=== PATIENT | male | born 1990 | race Caucasian/White ===

== ENCOUNTER 2017-08-29 08:00 | Outpatient (CLI) | payer OTHER ==
[2017-08-29 18:46] LABS: BASOPHILS % (AUTO) 0.5 %; EOSINOPHILS # (AUTO) 0.2 10^3/uL (0.0-0.7); EOSINOPHILS % (AUTO) 3.6 %; HGB - HEMOGLOBIN 13.9 g/dL (14.0-18.0); LYMPHOCYTES # (AUTO) 1.9 10^3/uL (1.5-3.5); LYMPHOCYTES % (AUTO) 31.6 %; MEAN CORPUSCULAR HEMOGLOBIN 30.5 pg (27.0-31.0); MEAN CORPUSCULAR HGB CONC 34.3 g/dL (32.0-36.0); MEAN CORPUSCULAR VOLUME 88.8 fL (80.0-94.0); MEAN PLATELET VOLUME 7.9 fL (7.4-11.4); MONOCYTES # (AUTO) 0.5 10^3/uL (0.0-1.0); MONOCYTES % (AUTO) 8.4 %; NEUTROPHILS # (AUTO) 3.3 10^3/uL (1.5-6.6); NEUTROPHILS % (AUTO) 55.9 %; PLT - PLATELET COUNT 204 10^3/uL (130-450); RED BLOOD COUNT 4.57 10^6/uL (4.70-6.10); RED CELL DISTRIBUTION WIDTH 12.7 % (12.0-15.0); WHITE BLOOD COUNT 5.9 x10^3/uL (4.8-10.8)
[2017-08-29 19:33] LABS: ALBUMIN 4.8 g/dL (3.2-5.5); ALBUMIN/GLOBULIN RATIO 1.7 (1.0-2.2); ALKALINE PHOSPHATASE 73 IU/L (42-121); ALT ALANINE AMINOTRANSFERASE 22 IU/L (10-60); AST ASPARTATE AMINOTRANSFERASE 21 IU/L (10-42); BILIRUBIN,TOTAL 0.8 mg/dL (0.2-1.0); BUN - BLOOD UREA NITROGEN 16 mg/dL (6-20); CALCIUM 10.3 mg/dL (8.5-10.3); CARBON DIOXIDE - CO2 28 mmol/L (21-32); CHLORIDE 95 mmol/L (101-111); CHOL/HDL RATIO 5.3 (<5.0); CHOLESTEROL 211 mg/dL; GFR - MDRD 91 (>89); GLUCOSE 89 mg/dL (70-100); HDL CHOLESTEROL 40 mg/dL; LDL CHOLESTEROL,CALCULATED 124 mg/dL; LDL/HDL RATIO 3.1 (<3.6); SODIUM 141 mmol/L (135-145); TOTAL PROTEIN 7.6 g/dL (6.7-8.2); VLDL CHOLESTEROL 47 mg/dL
== END 2017-08-29 08:01 | disposition home or self-care (01) ==
LOC: LAB.WCP 08:00
PROVIDERS: ATTEND Family Medicine
DX: E03.9 Hypothyroidism, unspecified (principal)
CPT/HCPCS: 36415; 80053; 80061; 83721; 84443; 85025

== ENCOUNTER 2022-07-28 07:54 | Outpatient (CLI) | payer OTHER ==
--- NOTE | 2022-07-28 10:09 | Ultrasound Report ---
PROCEDURE: Head or Neck Soft Tissue INDICATIONS: ENLARGED THYROID TECHNIQUE: Real time scanning was performed of the neck region of interest, with image documentation . COMPARISON: None FINDINGS: Right thyroid measures 5.8 x 1.5 x 2 cm. Left thyroid measures 4.7 x 1.4 x 1.7 cm. Isthmus measures 0.4 cm. No actionable thyroid nodule identified. Nodules under 5 mm may represent colloid cysts. IMPRESSION: No actionable thyroid nodule identified. Reviewed by: Deandre Campbell MD on 07/28/2022 10:08 AM [facility] Approved by: Deandre Campbell MD on 07/28/2022 10:08 AM [facility] Station ID: [id number]
== END 2022-07-28 07:55 | disposition home or self-care (01) ==
LOC: DI 07:54
PROVIDERS: ATTEND Physician Assistant
DX: E04.9 Nontoxic goiter, unspecified (principal)

== ENCOUNTER 2022-09-30 11:06 | Outpatient (CLI) | payer OTHER ==
--- NOTE | 2022-09-30 11:59 | SLEEP CARE CONSULTATION ---
Information from patient questionnaire entered by Lillie Elam. I have reviewed and concur with the information entered by Lillie Elam. This document represents the service I personally performed and the decisions made by me, Melanie Holbrook ARNP. History of Present Illness Service Date and Time: 09/30/2022 1106 Reason for Visit: New patient Chief Complaint: reports: Unrefreshed sleep, Snoring, Fatigue Date of Onset: fatigue 10+yrs, snoring 5yrs Usual bedtime: 10-11pm Time it takes to fall asleep: 30mins Snores at night: Yes Observed to quit breathing while asleep: No Sleeps alone due to snoring: No Number of times waking at night: 5-6 Reasons for waking at night: reports: Snoring, Bathroom, Other (dog). denies: Choking, Gasping for air Toss, Turn, or Twitch while sleeping: Yes Recalls having dreams: Yes Usually gets out of bed at: 0830-930am Feels refreshed in the morning: No Morning headache: Yes (3 times a month; last good portion of day, usually takes meds) Sleepy or fatigued during the day: Yes Ever fallen asleep while driving: No Takes day naps: Yes (unintentional naps, usually about 30 mins) Dreams during day naps: No Prior sleep studies: No Additional HPI information: I had the pleasure of seeing MUSLIM SANTY today regarding the possibility of him having a sleep disorder. His current complaints are fatigue, snoring and unrefreshed sleep. He states he has been snoring. He often feels tired throughout the day. He does not always wake up feeling rested. He had felt fatigued all the time for over 10 years but only noted snoring in last 5 years. He has woke himself up snoring. He denies pauses in breathing when sleeping. 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 Patient is Single and lives in [place]. Have you smoked in the past 12 months: No Alcohol use: Yes Alcohol amount and frequency: 1 drink 1-2 times a month Caffeine use: Yes Caffeine amount and frequency: max green tea 4-6 cups a day Family History Family history of sleep disordered breathing: Yes Family Hx Sleep Apnea: Mother: Snoring, Father: Snoring, Grandparent: Snoring Allergies and Home Medications Known drug allergies: No Drug allergies reviewed: Yes Home medication list reviewed: Yes Allergy and home medication list: Medications: Bupropion Venlafaxine Review of Systems Weight gain over past 5 years: 20 Cardiovascular: denies: high blood pressure Respiratory: denies: shortness of breath Gastrointestinal: denies: heartburn Neurological: reports: headaches Psychiatric: reports: Attention Deficit Hyperactivity, anxiety, depression Ear/Nose/Throat: reports: wisdom teeth removed. denies: tonsillectomy Immunologic: denies: allergies to food or environment Physical Exam Vital signs obtained and entered by: LILLIE Hale MA Blood Pressure: 132/90 (left arm) Cuff size: regular Heart Rate: 98 O2 Saturation: 97 Height: 5 ft 10 in Weight: 192 lb 6.4 oz Body Mass Index: 27.6 BMI Classification: Overweight Neck circumference: 16.25 Mouth and throat: narrow oropharynx Soft palate: long Hard palate: normal Uvula: normal Uvula visualization: 25% Mallampati Class III Tongue: normal in size Tonsils: small Neck: normal w/o lymphadenopathy or thyromegaly Heart: regular rate and rhythm Lungs: clear bilaterally Impression and Plan 1. Suspected Obstructive Sleep Apnea-Hypopnea Syndrome, as suggested by a history of irregular snoring, morning headache, frequent awakening during the night, unrefreshed sleep, cognitive impairment, and excessive daytime sleepiness. Narrow oropharynx and obesity are common predisposing factors for obstructive sleep apnea-hypopnea syndrome. I recommend proceeding to polysomnography to confirm the diagnosis and to assess severity. If the patient has significant sleep disordered breathing, a manual CPAP titration study will also be performed to find the optimal treatment pressure. I informed the patient of what the sleep studies involve and after some discussion, obtained agreement to proceed. The pathophysiology of obstructive sleep apnea-hypopnea syndrome was discussed with the patient and health risks of cardiovascular and cerebr ovascular disease if not treated. Risks of drowsy driving discussed in detail and patient advised to avoid long distance driving and to caul puller at the first sign of drowsiness. Patient agreed to plan. * Schedule polysomnography * Avoid long distance driving or driving when feeling sleepy. * Avoid alcohol, sedative and muscle relaxant around bedtime. * Attempt to lose weight. * Review instructions provided by trained office staff on how to prepare for the sleep study. * Return for follow-up after sleep study completed. Counseling Topics: Weight loss health impact Visit Type: In Office Time Spent with Patient (minutes): 32 Provider Statement: I spent 100% of the Face to Face Visit with the patient with greater than 50% spent counseling the patient and coordination of care.
[2022-09-30 12:00] VITALS: BP 132/90
== END 2022-09-30 11:07 | disposition home or self-care (01) ==
LOC: SC 11:06
PROVIDERS: ATTEND Nurse Practitioner Family
DX: G47.10 Hypersomnia, unspecified (principal); R06.83 Snoring; R51.9 Headache, unspecified; G47.8 Other sleep disorders; R53.83 Other fatigue; R41.89 Other symptoms and signs involving cognitive functions and awareness; E66.3 Overweight; Z68.27 Body mass index [BMI] 27.0-27.9, adult
CPT/HCPCS: 99203; 99212

== ENCOUNTER 2022-11-09 09:28 | Outpatient (CLI) | payer OTHER | END 2022-11-09 09:29 | disposition home or self-care (01) | LOC: SC 09:28 | PROVIDERS: ATTEND Nurse Practitioner Family | DX: G47.33 Obstructive sleep apnea (adult) (pediatric) (principal); R09.02 Hypoxemia; E66.3 Overweight; Z68.27 Body mass index [BMI] 27.0-27.9, adult | CPT/HCPCS: 95806 ==

== ENCOUNTER 2022-11-30 08:45 | Outpatient (CLI) | payer OTHER ==
[2022-11-30 09:07] VITALS: BP 136/83
--- NOTE | 2022-11-30 09:07 | SLEEP CARE CONSULTATION ---
Information from patient questionnaire entered by Milka Elam. I have reviewed and concur with the information entered by Milka Elam. This document represents the service I personally performed and the decisions made by , Melanie Holbrook ARNP. History of Present Illness Service Date and Time: 11/30/2022 0845 Initial Newton Sleepiness Scale score: 13 (09/30/22) Current Newton Sleepiness Scale score: 11 Additional HPI information: DAYTON MADERA returns for follow up and results of the recently performed home sleep study. I explained the pathophysiology behind obstructive sleep apnea. We then spent quite a bit of time discussing different treatment options. For mild obstructive sleep apnea, surgery and oral appliance are alternatives to nasal CPAP therapy but in moderate or severe cases, nasal CPAP is the most effective and reliable treatment. Because apnea is primarily in supine position, then positional management therapy could be effective. Methods discussed such as positioning with pillows, using a T-shirt with tennis balls in the back or products that have a pillow format on back to prevent supine sleep. I reviewed the impact of weight changes on sleep apnea and strongly recommended losing weight. Patient counseled not drink alcohol less than 4 hours before bedtime as it can increase snoring and apnea. Patient was cautioned about risks of drowsy driving until sleepiness symptoms resolve. Patient denies drowsy driving. Sleep Study - Results Type of Sleep Study: Home sleep study (COMPLETED 11/09/22) Prior sleep studies: No Polysomnography/Home Sleep Study results: Physician Impression: The quality of the study is good. The length of the study is adequate (> 240 minutes). Please also see the tabulated and graphic data. 1. Obstructive Sleep Apnea-Hypopnea (ICD-10 G47.33), mild, with an AHI of 10.5/hr and claudine SaO2 of 87%. During the study, the patient had 69 apneas (68 obstructive, 0 central, 1 mixed) and 26 hypopneas. The longest episode lasted 61.5 seconds. The respiratory events occurred more frequently during supine sleep (supine AHI was 20.0 and non-supine, 7.24). 2. Hypoxemia (ICD-10 R09.02), minimal, with the lowest oxygen saturation of 87 % and 0.5 minutes with SaO2 under 90%. Baseline oxygen saturation was normal (Average oxygen saturation was 95%). Allergies and Home Medications Known drug allergies: No Drug allergies reviewed: Yes Home medication list reviewed: Yes (Bupropion, Venlafaxine (not new)) Allergy and home medication list: Allergies No Known Drug Allergies Allergy (Verified 11/29/22 20:58) Review of Systems Review of systems same as previous: Yes (no changes) Physical Exam Vital signs obtained and entered by: Melanie Sosa NP Blood Pressure: 136/83 Cuff size: wrist (left) Heart Rate: 86 O2 Saturation: 98 Height: 5 ft 10 in Weight: 192 lb Body Mass Index: 27.5 BMI Classification: Overweight Impression and Plan 1. Obstructive Sleep Apnea-Hypopnea Syndrome, mild, with lowest oxygen saturation of 87%. Obviously this is the cause of the patients symptoms of unrefreshed sleep, and excessive daytime sleepiness. Positive pressure therapy could benefit depression and attention deficit. As mentioned above, the patient chose an oral appliance to treat their apnea. A month follow up will be made after he has been using his oral appliance to see if appliance has reduced symptoms. If so, another polysomnography will be ordered with use of the oral appliance to check efficacy in reducing apnea. Until patient is able to use the oral appliance, positional therapy is advised to avoid supine sleep with pillow positioning or one of the commercial products because apnea is more severe supine. * Oral Appliance * Attempt to lose weight. * Avoid alcohol consumption near bedtime. * Avoid supine sleep. * The patient is again cautioned about driving until sleepiness completely resolves. * Return one month after oral appliance obtained. I will assess response to therapy at that time. Counseling Topics: Weight loss health impact Visit Type: In Office Time Spent with Patient (minutes): 20 Provider Statement: I spent 100% of the Face to Face Visit with the patient with greater than 50% spent counseling the patient and coordination of care.
== END 2022-11-30 08:46 | disposition home or self-care (01) ==
LOC: SC 08:45
PROVIDERS: ATTEND Nurse Practitioner Family
DX: G47.33 Obstructive sleep apnea (adult) (pediatric) (principal); E66.3 Overweight; Z68.27 Body mass index [BMI] 27.0-27.9, adult
CPT/HCPCS: 99212; 99213